=== PATIENT | female | born 1970 ===

== ENCOUNTER 2024-07-11 06:20 | Day surgery (SDC) | payer OTHER, SELFPAY ==
[2024-07-05 14:14] VITALS: BMI 20.5
[2024-07-05 14:48] VITALS: BMI 20.5
[2024-07-05 14:56] LABS: ALT (SGPT) 21 U/L (0-35); AST (SGOT) 21 U/L (14-36); Albumin 4.4 g/dl (3.5-5.0); Alkaline Phosphatase 60 U/L (38-126); Blood Urea Nitrogen 17 mg/dl (7-17); Calcium 9.6 mg/dl (8.4-10.2); Carbon Dioxide 28 mmol/L (22-30); Chloride 101 mmol/L (98-107); Estimated Creatinine Clearance 60 ml/min; Glucose 114 mg/dl (70-99); Potassium 4.1 mmol/L (3.5-5.1); Sodium 138 mmol/L (135-145); Total Bilirubin 0.8 mg/dl (0.2-1.3); eGFR > 60.00
[2024-07-11] VITALS (14 sets, daily range): BP systolic 109–125; BP diastolic 72–90; BMI 20.5
[2024-07-11] MEDS: TYLENOL 1000 MG PO (09:14)
[2024-07-11] MEDS: METHOCARBAMOL 750 MG PO (09:15)
[2024-07-11] MEDS: CELEBREX 200 MG PO (09:15)
[2024-07-11] MEDS: LYRICA 150 MG PO (09:15)
[2024-07-11] MEDS: NORMOSOL-R/PLASMALYTE-A 1000 IV (09:16)
== END 2024-07-11 13:45 | disposition home or self-care (01) ==
LOC: SDS 06:20
PROVIDERS: ATTENDING PHYSICIAN Orthopaedic Surgery Orthopaedic Surgery of the Spine; FAMILY PHYSICIAN Family Medicine
DX: M48.02 Spinal stenosis, cervical region (principal); M48.12 Ankylosing hyperostosis [Forestier], cervical region
CPT/HCPCS: 22554; 22853; 22845; 36415; 72020; 80053; 87070; 93005; C1713

== ENCOUNTER 2024-09-28 15:03 | Outpatient (RCR) | payer OTHER, SELFPAY | END 2024-09-28 23:59 | disposition home or self-care (01) | LOC: RPT 15:03 | PROVIDERS: ATTENDING PHYSICIAN Orthopaedic Surgery Orthopaedic Surgery of the Spine; FAMILY PHYSICIAN Family Medicine | DX: Z47.89 Encounter for other orthopedic aftercare (principal); M48.02 Spinal stenosis, cervical region; Z73.6 Limitation of activities due to disability; Z98.1 Arthrodesis status; M62.81 Muscle weakness (generalized); M43.22 Fusion of spine, cervical region | CPT/HCPCS: 97110; 97112; 97140; 97161 ==